=== PATIENT | female | born 2005 ===

== ENCOUNTER → 2024-07-07 23:59 | Outpatient (BNV) | payer MEDICAID, SELFPAY ==
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
== END ==
PROVIDERS: PCP Nurse Practitioner Family; Visit Provider Nurse Practitioner Family
DX: G89.21 Chronic pain due to trauma (principal); T14.8XXA Other injury of unspecified body region, initial encounter; Z87.898 Personal history of other specified conditions; Z71.89 Other specified counseling; Z59.01 Sheltered homelessness; Z97.5 Presence of (intrauterine) contraceptive device; Z30.09 Encounter for other general counseling and advice on contraception
CPT/HCPCS: 99205